=== PATIENT | male | born 1975 | race Two or more races ===

== ENCOUNTER → 2022-09-29 | Outpatient (CLI) | payer OTHER | LOC: M PLARAD 12:41 | PROVIDERS: ATTEND Psychiatry & Neurology Neurology | DX: G43.109 Migraine with aura, not intractable, without status migrainosus (principal); R42 Dizziness and giddiness; H53.8 Other visual disturbances ==

== ENCOUNTER → 2022-10-05 | Outpatient (CLI) | payer OTHER | LOC: M PLARAD 13:46 → EDUNIT# 14:30 | PROVIDERS: ATTEND Psychiatry & Neurology Neurology | DX: R42 Dizziness and giddiness (principal); H53.8 Other visual disturbances; G43.109 Migraine with aura, not intractable, without status migrainosus ==